=== PATIENT | male | born 1965 | race African-American/Black ===

== ENCOUNTER → 2016-11-19 | Outpatient (CLI) | payer BC ==
--- NOTE | 2016-11-19 14:20 | KCIC ---
COMPLETE RENAL ULTRASOUND Indication: Nephrolithiasis. History of lithotripsy and stent. Comparison: None. Procedure: Transabdominal ultrasound images are obtained of the kidneys and bladder. Findings: The kidneys demonstrate normal cortical echotexture. Corticomedullary differentiation is preserved. There is no hydronephrosis. No renal calculus is identified sonographically. The right kidney measures 11.3 cm. The left kidney measures 12.3 cm. No urinary bladder wall thickening is identified. Bladder not well distended. Bilateral ureteral jets are identified. The prostate is not enlarged. The IVC is obscured due to overlying bowel gas. Mid and distal abdominal aorta are normal caliber. Proximal abdominal aorta is obscured. IMPRESSION: No hydronephrosis. No sonographic evidence of renal calculus. Electronically signed by: Noah Johnson MD (11/19/2016 2:17 PM)
== END | disposition home or self-care (01) ==
LOC: KCIC US 13:25
PROVIDERS: ATTEND Urology
DX: N20.0 Calculus of kidney (principal)
CPT/HCPCS: 76770